=== PATIENT | female | born 1960 | race Caucasian/White ===

== ENCOUNTER 2019-11-10 22:48 | Emergency (ER) | payer OTHER, BC ==
[2019-11-10] MEDS ORDERED: DEXAMETHASONE INJ 10 MG/ML VIAL IV ONE (23:07)
[2019-11-10] MEDS ORDERED: diphenhydrAMINE HCL 50 MG/ML VIAL IV ONE (23:09)
[2019-11-10] MEDS ORDERED: FAMOTIDINE 10 MG/ML ML IV ONE (23:09)
--- NOTE | 2019-11-10 23:12 | ED.PDOC ---
History of Present Illness - General Time Seen by Provider: 11/10/19 22:57 - History of Present Illness Initial Comments: pleasant 59 yo F was drinking a beer about 3 hours ago when a yellow jacket got inside and stung her right upper lip. she took 12.5 mg benadryl, and 1000 mg tylenol, but then broke out in a rash. Has been stung before a few months back, but only had a local reaction. denies chest pain, palpations, shortness of breath or difficulty swallowing. Allergies/Adverse Reactions: Allergies Escitalopram Allergy (Verified 11/10/19 23:38) Hydrochlorothiazide Allergy (Verified 11/10/19 23:38) Methylprednisolone Allergy (Verified 11/10/19 23:38) Ondansetron [From Zofran] Allergy (Verified 11/10/19 23:38) Sulfamethoxazole w/Trimethoprim [From Bactrim] Allergy (Verified 11/10/19 23:24) Home Medications: Ambulatory Orders EPINEPHrine AUTO-INJ [EpiPen] 0.3 mg IM ONCE PRN #2 pen 11/10/19 Levothyroxine Sodium [Synthroid] 75 mcg PO DAILY 11/10/19 Spironolactone 25 mg PO 11/10/19 Review of Systems - Review of Systems Constitutional: Denies: fever, malaise EENTM: States: other - seasonal allergies. Denies: blurred vision, ear discharge, throat pain, throat swelling, mouth pain, mouth swelling Respiratory: Denies: cough, short of breath, stridor, wheezing Cardiology: Denies: chest pain, palpitations Gastrointestinal/Abdominal: Denies: abdominal pain, nausea, vomiting Genitourinary: Denies: discharge, dysuria Musculoskeletal: Denies: back pain, joint pain, joint swelling, muscle pain Neurological: Denies: headache, numbness, paresthesia, pre-existing deficit, seizure, tingling, tremors, weakness Endocrine: Denies: flushing, increased hunger, increased thirst, increased urine, unexplained weight gain, unexplained weight loss Hematologic/Lymphatic: Denies: anemia, blood clots, easy bleeding, easy bruising Past Medical History (General) - Patient Medical History Hx Hypertension: Yes Hx Thyroid Disease: Yes Family Medical History - Family History Mother Family History: No Known Physical Exam - Physical Exam General Appearance: Alert, Comfortable, No apparent distress Eye Exam: bilateral normal Ears, Nose, Throat: hearing grossly normal, normal ENT inspection, normal pharynx Neck: non-tender, full range of motion, supple, normal inspection Respiratory: chest non-tender, lungs clear, normal breath sounds, no respiratory distress, no accessory muscle use Cardiovascular/Chest: normal peripheral pulses, regular rate, rhythm, no edema, no gallop, no JVD, no murmur Peripheral Pulses: radial,right: 2+, radial,left: 2+, dorsalis pedis,right: 2+, dorsalis pedis,left: 2+ Gastrointestinal/Abdominal: normal bowel sounds, non tender, soft, no organomegaly, no pulsatile mass Rectal Exam: deferred Back Exam: normal inspection, no CVA tenderness, no vertebral tenderness Extremity: normal range of motion, non-tender, normal inspection, no pedal edema, no calf tenderness 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 no oral lesions Lymphatic: no adenopathy Progress - Progress Progress: 11/10/19 23:13 patient states her allergy to prednisone is panic attacks. Will give patient IV benadryl, famotidine, dexamethasone, and ativan for anxiety. no evidence of anaphylaxis, no stridor, airway concerns. resp wnl. Will monitor for 3 hours. If stable plan to discharge home. 11/10/19 23:41 patient doing well. resting comfortably. will continue to monitor. IF stable plan on discharge. Rash has completely resolved around face and forehead. The data reviewed when caring for this patient included: nurse notes etc. The history and assessments from nurses notes were reviewed and considered, and the patient's home medication list was also reviewed and considered. My assessment and the results of testing completed here in the ED were discussed with the patient/family. All questions were answered, and they express understanding of my assessment and the plan. rash has completely resolved, patient resting comfortably. They have been instructed to return if their symptoms worsen, and have been asked to follow up with their primary care physician to recheck today's presenting complaint. I have reviewed medication, benefits, alternative and side effects. Patient decided to proceed with medication.patient works with [employer], understands and has been trained on how to use epi pen. plan on discharging with epi pen. discharged home in stable conditions, warnings to return provided. patient and understand. 11/11/19 01:28 billing code [id number] Departure - Departure Clinical Impression: Yellow jacket sting allergy Allergic reaction Qualifiers: Encounter type: initial encounter Qualified Code(s): T78.40XA - Allergy, unspecified, initial encounter Disposition: Discharge to Home or Self Care Condition: Good Instructions: Hives, Insect Bites and Stings (DC) Prescriptions: EPINEPHrine AUTO-INJ [EpiPen] 0.3 mg IM ONCE PRN #2 pen PRN Reason: Bee Sting Home Medications: Ambulatory Orders EPINEPHrine AUTO-INJ [EpiPen] 0.3 mg IM ONCE PRN #2 pen 11/10/19 Levothyroxine Sodium [Synthroid] 75 mcg PO DAILY 11/10/19 Spironolactone 25 mg PO 11/10/19
[2019-11-10 23:15] VITALS: TEMP 97.3
[2019-11-10] MEDS ORDERED: FAMOTIDINE 20 MG TAB ONE (23:20)
[2019-11-11 01:42] VITALS: BP 127/81; O2SAT 96
[2019-11-12] MEDS ORDERED: FAMOTIDINE 20 MG TAB PO ONE (23:25)
== END 2019-11-11 02:00 | disposition home or self-care (01) ==
LOC: ER 22:48
DX: T63.441A Toxic effect of venom of bees, accidental (unintentional), initial encounter (principal); I10 Essential (primary) hypertension; E07.9 Disorder of thyroid, unspecified; Z79.899 Other long term (current) drug therapy; Z88.8 Allergy status to other drugs, medicaments and biological substances; Z88.2 Allergy status to sulfonamides
CPT/HCPCS: J1100; J1200; J2060